=== PATIENT | male | born 1965 | race Hispanic/Latino ===

== ENCOUNTER 2021-11-17 16:20 | Emergency (ER) | payer OTHER, SELFPAY ==
--- OUTSIDE RECORDS SUMMARY | 2021-11-17 16:23 | XMS REPORT | Continuity of Care Document ---
:1965 Author Organization [facility] t Address [address] [place] [address] Care Team Providers Name Role Phone Alissa JACKSON Attending Clinician Unavailable Payers Payer Name Policy Type Policy Number Effective Date Expiration Date Chelsey TAYLOR BCBS BLUE [id number] 2018 ADVANTAGE O 00:00:00 Problems This patient has no known problems. Allergies, Adverse Reactions, Alerts Allergy Allergy Status Severity Reaction(s) Onset Inactive Treating Comm ents Source Name Type Date Date Clinician NO KNOWN Drug Active [facility] ALLERGIE Class [facility] Medications This patient has no known medications. Procedures This patient has no known procedures. Encounters Start End Encounter Admission Attending Care Care Encounter Source Date/Time Date/Time Type Type Clinicians Facility Department ID 2020-10-16 2020-10-[id number] [facility] 16:10:00 16:10:00 [facility] 2020-10-15 2020-10-15 Outpatient Petey JACKSON [facility] [id number] [facility] 09:50:00 09:50:00 [facility] 2020-09-24 2020-09-24 Outpatient [facility] [id number] [facility] 10:00:00 10:00:00 [facility] Results Test Description Test Time Test Comments Results Result Comments Source HEMOGLOBIN A1c 2021-06-21 05:32:56 Test Item Value Reference Range Interpretation Comme nts HEMOGLOBIN A1c (test code = 7.5 % 4.2-5.6 H [employer] [employer] 15642) GUIDELINES FOR HGB A1C: PREDIABETES/INC REASED RISK . . . . . . . 5.7-6.4% DIAGNOSIS OF DIABETES . . . . . . . . . >=6.5% WITH CONFIRMATION OR APPROPRIATE SYMPTOMS NOTE: ASSAY MA Y BE AFFECTED BY HEMOGLOBINOPATH IES (SICKLE CELL ANEMIA, S-C DIS EASE, OTHERS) OR ARTIFICIALLY LO WERED BY DECREASED RED CELL SURVIV AL (HEMOLYTIC ANEMIAS, BLOOD LOSS, ETC.). CONSIDER ALTERNATE TESTI NG OR LABORATORY CONSULTATION. LIPID [id number] 05:04:01 Test Item Value Reference Range Interpretation Comments CHOLESTEROL (test 109 MG/DL <200 code = 2210) TRIGLYCERIDES (test 82 MG/DL <150 code = 2232) HDL CHOLESTEROL (test 53 MG/DL >39 code = 2220) CALC LDL CHOL (test 40 MG/DL <100 NOTE: C ALCULATED LDL code = 2237) IS BASED ON CARL-SALAZAR METHOD WHICHINCLUDES ADJUSTABLE TRIGLYCERIDE:VL DL CHOLESTEROL RAT IO.THIS FACTOR VARIES B Y MEASURED TRIGLY CERIDE AND NON-HDLCHOL ESTEROL CONCENTRATIONS WITH INCREASED CALCU LATED LDL SEENIN HIGH ER TRIGLYCERIDE OR LOWER NON-HDL SPECIME NS. FOR MOREINFORMATION , SEE CLIENT ANNOUNCE MENT AT [email or web address] RISK RATIO LDL/HDL 0.75 RATIO <3.55 (test code = 2238) COMPREHENSIVE METABOLIC [id number] 05:04:01 Test Item Value Reference Range Interpretation Comments GLUCOSE (test code = 149 MG/DL 70-99 H 2216) BUN (test code = 14 MG/DL -20 2207) CREATININE (test 0.72 MG/DL 0.80-1.40 L EFFECTIVE code = 2214) 06/16/2021, [facility] HAS IMPLEMENTED THE NKF-ASN RECOMME NDED KD-EPI EGF R REFIT CALCULATI ON THAT DOES NOT I NCLUDE A COEFFICIENT FORRACE. FOR MO RE INFORMATION, SE E ANNOUNCEMENT [email or web address] [employer]/EGFR_CALC eGFR (2020 CKD-EPI) 107 >60 (test code = 73770) ML/MIN/1.73 CALC BUN/CREAT (test 19 RATIO 6-28 code = 2235) SODIUM (test code = 140 MEQ/L 148-961 1709) POTASSIUM (test code 4.4 MEQ/L 3.5-5.4 = 2227) CHLORIDE (test code 103 MEQ/L 95-107 = 2214) CARBON DIOXIDE (test 25 MEQ/L 19-31 code = 2206) CALCIUM (test code = 9.2 MG/DL 8.5-10.5 2208) PROTEIN, TOTAL (test 6.9 G/DL 6.1-8.3 code = 222) ALBUMIN (test code = 4.7 G/DL 3.5-5.2 2200) CALC GLOBULIN (test 2.2 G/DL 1.9-3.7 code = 2240) CALC A/G RATIO (test 2.1 RATIO 1.0-2.6 code = 223) BILIRUBIN, TOTAL 0.5 MG/DL See_Comment [Automated message] (test code = 220) The syste [place] which generated this result transmitted ref erence range: <=1.2. T he reference range was not used to int erpret this result as normal/abnormal . ALKALINE PHOSPHATASE 71 U/L 40-123 (test code = 2203) AST (test code = 25 U/L 9-50 2217) ALT (test code = 33 U/L 5-50 UNLE SS 2218) OTHERWISE INDIC ATED, ALL TESTING PER [facility], [place] [address] [place] [address] LABORATORY DIRE CTOR: UMBERTO GOMEZ M.D. CLIA NUMBER [id number] CAP ACCREDITATION N O. [id number]
[2021-11-17] MEDS ORDERED: FLUORESCEIN SODIUM 1 MG/WRAP ONE (19:00)
[2021-11-17] MEDS ORDERED: TETRACAINE HCL 0.5% 4ML OPTH ONE (19:00)
[2021-11-17] MEDS ORDERED: ACETAMINOPHEN 500 MG TAB ONE (20:05)
[2021-11-17] MEDS ORDERED: IBUPROFEN 400 MG TAB ONE (20:05)
[2021-11-17] MEDS ORDERED: GENTAMICIN 0.3% OPTH DROP 5ML ONE (20:09)
--- NOTE | 2021-11-17 20:16 | ER ---
Nurse's Notes [facility] Name: Mickey Briceño Age: 55 yrs Sex: Male : 1965 Arrival Date: 11/17/2021 Time: 16:23 Bed DIS3 Private MD: Diagnosis: Injury of conjunctiva and corneal abrasion without foreign body, right eye Presentation: 11/17 16:28 Chief complaint: Patient states: reports was sandblasting and felt something in his ll1 right eye reports pain and blurred vision. Sclera reddened. Coronavirus screen: Vaccine status: Patient reports receiving the 2nd dose of the covid vaccine. Ebola Screen: Patient negative for fever greater than or equal to 101.5 degrees Fahrenheit, and additional compatible Ebola Virus Disease symptoms. Mechanism of Injury: foreign object in eye. Risk Assessment: Do you want to hurt yourself or someone else? Patient reports no desire to harm self or others. Onset of symptoms was November 17, 2021. 16:28 Method Of Arrival: Ambulatory ll1 16:28 Acuity: POLA 3 ll1 Triage Assessment: 16:34 General: Appears distressed, uncomfortable, well developed, well nourished, Behavior is ll1 calm, cooperative. Pain: Complains of pain in right eye. EENT: Eyes are tearing on inner aspect of conjuctiva of right eye. Historical: - Allergies: 16:32 No Known Allergies; ll1 - Home Meds: 16:32 metformin oral 2 times per day [Active]; ll1 - PMHx: 16:32 Hypertensive disorder; high cholesterol; ll1 - PSHx: 16:32 None; ll1 - Immunization history:: Adult Immunizations Client reports receiving the 2nd dose of the Covid vaccine, Last tetanus immunization: up to date < 5 years ago. - Social history:: Smoking status: Patient denies any tobacco usage or history of. Assessment: 20:22 Reassessment: Patient is alert, oriented x 3, equal unlabored respirations, skin bb warm/dry/pink. pt seen by this RN at discharge pt and family verbalized understanding of and agree to plan of care discharge instructions given pt ambulated with steady gait to exit accompanied by family. Vital Signs: 16:28 BP 149 / 87; Pulse 71; Resp 16; Temp 98.7(O); Pulse Ox 100% on R/A; Pain 10/10; ll1 16:33 BP 149 / 87; Pulse 71; Resp 16; Temp 98.1; Pulse Ox 100% on R/A; Pain 10/10; ll1 Visual Acuity: 20:09 Left Eye Visual acuity 20/25, ; Right Eye Visual acuity 20/30, ; Both Eyes Visual bb acuity 20/15; Without Lenses; ED Course: 16:23 Patient arrived in ED. ds1 16:32 Triage completed. ll1 18:47 Dejan Leon PA is PHCP. cp 18:48 Dejan Sykes MD is Attending Physician. cp 20:15 Tom Reyes MD is Referral Physician. cp 20:23 Patient did not have IV access during this emergency room visit. bb Administered Medications: 20:09 Drug: Ibuprofen 800 mg Route: PO; bb 20:13 Follow up: Response: Medication administered at discharge. bb 20:09 Drug: Tylenol 1000 mg Route: PO; bb 20:13 Follow up: Response: Medication administered at discharge. bb 20:09 Drug: Gentamicin Drops 0.3 % 2 drops Route: Ophthalmic; Site: right eye; bb 20:13 Follow up: Response: Medication administered at discharge. bb Outcome: 20:16 Discharge ordered by MD. cp 20:23 Discharged to home ambulatory, with family. bb 20:23 Condition: stable 20:23 Discharge instructions given to patient, family, Instructed on discharge instructions, follow up and referral plans. medication usage, Demonstrated understanding of instructions, follow-up care, medications, Prescriptions given X 2. 20:23 Patient left the ED. bb Signatures: Michelle Raymundo ds1 Mai Fish, RN RN bb Dejan Leon PA PA cp Lewis, Lynsay RN RN ll1
--- NOTE | 2021-11-17 20:16 | EDPHYS ---
Physician Documentation [facility] Name: Mickey Briceño Age: 55 yrs Sex: Male : 1965 Arrival Date: 11/17/2021 Time: 16:23 Bed DIS3 Private MD: ED Physician Dejan Sykes HPI: 11/17 19:00 This 55 yrs old Male presents to ER via Ambulatory with complaints of Eye cp Injury. 19:00 The patient is experiencing foreign body sensation, to the right eye. Onset: The cp symptoms/episode began/occurred today. 19:00 Duration: the symptoms are continuous. cp 19:00 Associated signs and symptoms: Pertinent positives: redness of right eye, pain, cp Pertinent negatives: dizziness, ear ache, fever, headache. Patient does not utilize any form of vision correction. Severity of symptoms: in the emergency department the symptoms are unchanged despite home interventions. Scientific Informatics Project Leader used. Patient reports wind blew something into eye today. Historical: - Allergies: 16:32 No Known Allergies; ll1 - Home Meds: 16:32 metformin oral 2 times per day [Active]; ll1 - PMHx: 16:32 Hypertensive disorder; high cholesterol; ll1 - PSHx: 16:32 None; ll1 - Immunization history:: Adult Immunizations Client reports receiving the 2nd dose of the Covid vaccine, Last tetanus immunization: up to date < 5 years ago. - Social history:: Smoking status: Patient denies any tobacco usage or history of. ROS: 19:05 Constitutional: Negative for body aches, chills, fever, poor PO intake. cp 19:05 Eyes: Positive for foreign body sensation, pain, redness, visual disturbance, Negative cp for discharge. 19:05 ENT: Negative for drainage from ear(s), ear pain, sore throat, difficulty swallowing, difficulty handling secretions. 19:05 Respiratory: Negative for cough, shortness of breath, wheezing. 19:05 Abdomen/GI: Negative for abdominal pain, nausea, vomiting, and diarrhea. 19:05 Skin: Negative for cellulitis, rash. 19:05 Neuro: Negative for altered mental status, headache, weakness. 19:05 All other systems are negative. Exam: 19:10 Constitutional: The patient appears in no acute distress, alert, awake, non-toxic, well cp developed, well nourished, uncomfortable. 19:10 Head/Face: Normocephalic, atraumatic. cp 19:10 Eyes: Periorbital structures: appear normal, Pupils: equal, round, and reactive to light and accomodation, Extraocular movements: intact throughout, Conjunctiva: injected, in the right eye, Corneas: abrasion, that is moderate sized, left upper cornea of right eye, foreign body, is not appreciated, a fluorescein strip employed to appreciate the findings, Lids and lashes: appear normal, bilaterally, Examination of the other eye reveals no obvious gross abnormality. 19:10 ENT: External ear(s): are unremarkable, Nose: is normal, Mouth: Lips: moist, Oral mucosa: moist, Posterior pharynx: Airway: no evidence of obstruction, patent. 19:10 Neck: Lymph nodes: no appreciated lymphadenopathy. 19:10 Chest/axilla: Inspection: normal. 19:10 Cardiovascular: Rate: normal, Rhythm: regular. 19:10 Respiratory: the patient does not display signs of respiratory distress, Respirations: normal, no use of accessory muscles, no retractions, labored breathing, is not present. 19:10 Skin: cellulitis, is not appreciated, no rash present. 20:10 Visual Acuity: I have reviewed the nursing documentation. Vital Signs: 16:28 BP 149 / 87; Pulse 71; Resp 16; Temp 98.7(O); Pulse Ox 100% on R/A; Pain 10/10; ll1 16:33 BP 149 / 87; Pulse 71; Resp 16; Temp 98.1; Pulse Ox 100% on R/A; Pain 10/10; ll1 Visual Acuity: 20:09 Left Eye Visual acuity 20/25, ; Right Eye Visual acuity 20/30, ; Both Eyes Visual bb acuity 20/15; Without Lenses; MDM: 18:48 Patient medically screened. rubin 19:00 Differential diagnosis: Corneal abrasion of right eye. Corneal ulcer of right eye. cp Foreign body in right eye. Acute iritis of right eye. Acute glaucoma in right eye. Chemical conjunctivitis in Allergic conjunctivitis in Infectious conjunctivitis in. 20:15 Data reviewed: vital signs, nurses notes. 20:15 Counseling: I had a detailed discussion with the patient and/or guardian regarding: the cp historical points, exam findings, and any diagnostic results supporting the discharge/admit diagnosis, the need for outpatient follow up, an opthalmologist, to return to the emergency department if symptoms worsen or persist or if there are any questions or concerns that arise at home. Response to treatment: the patient's symptoms have markedly improved after treatment, and as a result, I will discharge patient. 11/17 18:48 Order name: Eye Tray; Complete Time: 18:53 cp 11/17 18:48 Order name: Fluoresene Opth strip; Complete Time: 18:53 cp 11/17 18:48 Order name: Visual Acuity; Complete Time: 20:12 cp Administered Medications: 20:09 Drug: Ibuprofen 800 mg Route: PO; bb 20:13 Follow up: Response: Medication administered at discharge. bb 20:09 Drug: Tylenol 1000 mg Route: PO; bb 20:13 Follow up: Response: Medication administered at discharge. bb 20:09 Drug: Gentamicin Drops 0.3 % 2 drops Route: Ophthalmic; Site: right eye; bb 20:13 Follow up: Response: Medication administered at discharge. bb Disposition Summary: 11/17/21 20:16 Discharge Ordered Location: Home cp Problem: new cp Symptoms: have improved cp Condition: Stable cp Diagnosis - Injury of conjunctiva and corneal abrasion without foreign body, right eye cp Followup: cp - With: Tom Reyes MD - When: 1 - 2 days - Reason: Recheck today's complaints Discharge Instructions: - Discharge Summary Sheet cp - Corneal Abrasion cp - Form - Excuse from Work, School, or Physical Activity cp Forms: - Medication Reconciliation Form cp - Thank You Letter cp - Antibiotic Education cp - Prescription Opioid Use cp Prescriptions: - Gentamicin 0.3 % Ophthalmic Drops - instill 1 drop by OPHTHALMIC route every 4 hours for 7 days; 1 bottle; Refills: cp 0, Product Selection Permitted - Ibuprofen 800 mg Oral Tablet - take 1 tablet by ORAL route every 8 hours As needed take with food; 30 tablet; cp Refills: 0, Product Selection Permitted Signatures: Dejan Sykes MD MD cha Ballard, Brenda, RN RN Dejan Maher PA PA cp Lewis, Lynsay RN RN ll1
[2021-11-17 20:48] VITALS: BP 149/87; O2SAT 100
[2021-11-17 20:50] VITALS: TEMP 98.1
== END 2021-11-17 20:23 | disposition home or self-care (01) ==
LOC: ER 16:20
DX: S05.01XA Injury of conjunctiva and corneal abrasion without foreign body, right eye, initial encounter (principal); I10 Essential (primary) hypertension; E78.00 Pure hypercholesterolemia, unspecified; X58.XXXA Exposure to other specified factors, initial encounter; Y93.89 Activity, other specified; Y92.69 Other specified industrial and construction area as the place of occurrence of the external cause; Y99.0 Civilian activity done for income or pay
CPT/HCPCS: 99283